=== PATIENT | male | born 1990 | race Caucasian/White ===

== ENCOUNTER 2024-11-28 09:50 | Emergency (ER) | payer OTHER, SELFPAY ==
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
--- NOTE | ~2024-11-28 | XR_ITS ---
Cervical Spine: AP, lateral, open-mouth views Clinical History: Pain Findings: There is straightening of normal cervical lordosis. No instability seen on flexion or exten mary grace. The vertebral bodies and posterior elements appear intact. The intervertebral disc spaces are well maintained. Pre-vertebral soft tissues are unremarkable. Impression: No significant abnormality seen. Reviewed, dictated and finalized at location . Impression: No significant abnormality seen.
--- NOTE | ~2024-11-28 | XR_ITS ---
Left Shoulder Technique: AP and scapular Y views were obtained. Clinical History: Pain Findings: No fracture or dislocation is seen. Osseous alignment is anatomic. The glenohumeral and acr omioclavicular joint spaces are preserved. Soft tissues are unremarkable. Impression: Unremarkable left shoulder radiographs. Reviewed, dictated and finalized at [facility]. Impression: Unremarkable left shoulder radiographs.
[2024-11-28 09:52] VITALS: BP 155/95; PULSE 80; RESP 16; TEMP 36.9; O2SAT 100
--- OUTSIDE RECORDS SUMMARY | 2024-11-28 10:22 | XMS_ITS | Clinical Summary ---
Author Organization [facility] [employer] Address [address] [place] [address] Care Team Providers Care Breaker Machine Tender Name Role Phone Unavailable Primary Care Provider Unavailabl e Source Comments [facility] [employer],non-owned Affiliates and Associated Physician Practices is amultiple site organization consisting of ambulatory clinics and hospital sitesin [place], [place], [place] and [place]. This disclosure is being madepursuant to the Care Everywhere program and may not contain all information available regarding this patient. Last updated 18.[facility] [employer] Allergies No known active allergies Medications * Be aware that medications may not be up to date on this document. Alwaysverify current medications with the patient. Medication Sig Dispensed Refills Start Date End Date Status predniSONE (DELTASONE) 20 MG tabletIndications:A topic dermatitis, unspecified type 3 tabs PO QD x 3 days, 2 tabs PO QD x 3 days, 1 tab PO QD x 3 days 18 tablet 11/01/2018 Active Additional Information Patient not taking.Reported on 11/14/2018 Social History Tobacco Use Types Packs/Day Years Used Date Smoking Tobacco: Never Smokeless Tobacco: Never Sex and Gender Information Value Date Recorded Sex Assigned at Not on file Gender Identity Not on file Sexual Orientation Not on file Last Filed Vital Signs Vital Sign Reading Time Taken Comments Blood Pressure 110/70 01/28/2019 5:58 PM CDT Pulse 88 01/28/2019 5:58 PM CDT Temperature 36.7 C (98.1 F) 01/28/2019 5:58 PM CDT Respiratory Rate 16 01/28/2019 5:58 PM CDT Oxygen Saturation 97% 01/28/2019 5:58 PM CDT Inhaled Oxygen Concentration - - Weight 68.9 kg (152 lb) 01/28/2019 5:58 PM CDT Height 180.3 cm (5' 11 ) 01/28/2019 5:58 PM CDT Body Mass Index 21.2 01/28/2019 5:58 PM CDT Plan of Treatment Health Maintenance Due Date Last Done Comments HIV SCREENING 2005 HEPATITIS C SCREENING 06/09/2008 DTAP/TDAP/TD VACCINES (1 - Tdap) 2009 HEPATITIS B VACCINE (1 of 3 - 19+ 3-dose series) 2009 COVID-19 VACCINE (1 - 2023-2 5 season) 2024 INFLUENZA VACCINE (#1) 2024 DEPRESSION SCREENING 09/11/2024 ZOSTER VACCINE (1 of 2) 2040 HIB VACCINE Aged Out No longer eligi ble based on patient's age to complete this topic HPV VACCINE Aged Out No longer eligi ble based on patient's age to complete this topic MENINGOCOCCAL (Group B) VACC INE SHARED DECISION-MAKING Aged Out No longer eligibl e based on patient's age to complete this topic MENINGOCOCCAL GROUPS A/C/Y/W VACCINE Aged Out No longer eligible b ased on patient's age to complete this topic PNEUMOCOCCAL VACCINE Aged Out No long er eligible based on patient's age to complete this topic
--- OUTSIDE RECORDS SUMMARY | 2024-11-28 10:22 | XMS_ITS | Referral Summary ---
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 Gender Identity Not on file Sexual Orientation Straight 01/24/2023 7: 50 AM CDT Last Filed Vital Signs Vital Sign Reading Time Taken Comments Blood Pressure 120/90 01/23/2023 5:04 PM CDT Pulse 87 01/23/2023 5:04 PM CDT Temperature 37.2 C (98.9 F) 01/23/2023 5:04 PM CDT Respiratory Rate 18 01/23/2023 5:04 PM CDT Oxygen Saturation 97% 01/23/2023 5:04 PM CDT Inhaled Oxygen Concentration - - Weight 79.4 kg (175 lb) 01/23/2023 5:04 PM CDT Height 180.3 cm (5' 11 ) 01/23/2023 5:04 PM CDT Body Mass Index 24.41 01/23/2023 5:04 PM CDT Plan of Treatment Not on file Insurance [facility] EMPLOYEES EMPLOYEES EMPLOYEES [employer]YE[employer] Care Teams Banquet Kitchen Supervisor Relationship Specialty Start Date End Date No, Physician PCP - General 01/23/23 Unknown, Notinfile 01/23/23
--- OUTSIDE RECORDS SUMMARY | 2024-11-28 10:22 | XMS_ITS | Clinical Summary ---
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 Gender Identity Not on file Sexual Orientation Straight 01/24/2023 7: 50 AM CDT Obstetrics History Last Filed Vital Signs Vital Sign Reading [...] 01/23/2023 5:04 PM CDT Plan of Treatment Health Maintenance Due Date Last Done Comments Depression Screening 1990 Hepatitis C Screening 1990 Varicella Vaccines (1 of 2 - 13+ 2-dose series) 2003 Hepatitis B Screening 2008 Regular Well Visit/Exam 18-64 2008 Covid-19 Vaccine (3 - 2023-2 5 season) 2024 12/29/2020, 12/08/2020 Influenza Vaccine (#1) 2024 05/27/2020 DTaP/Tdap/Td Vaccine (2 - Td or Tdap) 05/27/2030 05/27/2020 HPV Vaccines Aged Out No longer eligi ble based on patient's age to complete this topic Pneumococcal vaccine <65 Aged Out No longer eligible based on patient's age to complete this topic Insurance EMPLOYEES EMPLOYEES [facility] EMPLOYEES [employer] [facility] [employer]YEES Care Teams Outdoor Studies Director Relationship Specialty Start Date End Date No, Physician PCP - General 01/23/23 Unknown, Notinfile 01/23/23
[2024-11-28 10:26] VITALS: BP 151/96; O2SAT 100
[2024-11-28 10:27] VITALS: O2SAT 99
[2024-11-28 10:39] VITALS: O2SAT 100
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
--- OUTSIDE RECORDS SUMMARY | 2024-11-28 11:46 | XMS_ITS | Referral Summary ---
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
--- OUTSIDE RECORDS SUMMARY | 2024-11-28 11:46 | XMS_ITS | Clinical Summary ---
Author Organization [facility] [employer] Address [address] [place] [address] Care Team Providers Care Car Sales Representative Name Role Phone Unavailable Primary Care Provider Unavailabl e Source Comments [facility] [employer],non-owned Affiliates and Associated Physician Practices is amultiple site organization consisting of ambulatory clinics and hospital sitesin [place], [place], [place]. This disclosure is being madepursuant to the Care Everywhere program and may not contain all information available regarding this patient. Last updated 18.[facility] [employer] Allergies No known active allergies Medications * [...]
--- OUTSIDE RECORDS SUMMARY | 2024-11-28 11:46 | XMS_ITS | Clinical Summary ---
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 EMPLOYEES [employer] EMPLOYEES Care Teams Community Development Planner Relationship Specialty Start Date End Date No, Physician PCP - General 01/23/23 Unknown, Notinfile 01/23/23
[2024-11-28 12:20] VITALS: BP 128/86; PULSE 84; RESP 14; O2SAT 96
== END 2024-11-28 12:21 | disposition home or self-care (01) ==
PROVIDERS: Emergency Provider Physician Assistant
DX: S46.912A Strain of unspecified muscle, fascia and tendon at shoulder and upper arm level, left arm, initial encounter (principal); S16.1XXA Strain of muscle, fascia and tendon at neck level, initial encounter; V89.2XXA Person injured in unspecified motor-vehicle accident, traffic, initial encounter
CPT/HCPCS: 72050; 73030; 73110; 99284